=== PATIENT | female | born 1945 | race Native Hawaiian/Other Pacific Islander ===

== ENCOUNTER 2016-12-24 19:29 | Emergency (ER) | payer OTHER ==
[2016-12-24 19:30] VITALS: BMI 21.9
[2016-12-24] MEDS ORDERED: Albuterol-Ipratrop 3 mg / 0.5 (3 ml) UD IH STA (20:41)
[2016-12-24] MEDS ORDERED: Albuterol-Ipratrop 3 mg / 0.5 (3 ml) UD ONE (21:07)
[2016-12-24 21:22] LABS: BASO # 0.1 K/uL (0.0-0.2); BASO % 0.8 % (0.0-2.0); CHLORIDE 102 mmol/L (98-107); EOS # 0.2 K/uL (0.0-0.7); EOS % 3.3 % (0.0-4.0); HEMATOCRIT 39.4 % (34.0-47.0); LYMPH # 2.6 K/uL (1.0-4.3); LYMPH % 34.3 % (20.0-40.0); MEAN CORPUSCULAR HEMOGLOBIN 28.3 pg (27.0-31.0); MEAN CORPUSCULAR HGB CONC 33.6 g/dL (33.0-37.0); MEAN PLATELET VOLUME 8.8 fL (7.2-11.7); MONO # 0.7 K/uL (0.0-0.8); MONO % 9.3 % (0.0-10.0); NRBC % 0.1 % (0.0-2.0); POTASSIUM 4.4 mmol/L (3.6-5.2); RED CELL DISTRIBUTION WIDTH 13.5 % (11.5-14.5); SODIUM 138 mmol/L (132-148); WHITE BLOOD COUNT 7.5 K/uL (4.8-10.8)
[2016-12-24 21:24] LABS: ALB/GLOB RATIO 1.2 (1.0-2.1); ALKALINE PHOSPHATASE 62 U/L (38-126); AST/SGOT 35 U/L (14-36); BILIRUBIN,TOTAL 0.7 mg/dL (0.2-1.3); CARBON DIOXIDE 25 mmol/L (22-30); GFR AFRICAN-AMERICAN > 60; TOTAL PROTEIN 8.1 g/dL (6.3-8.3)
[2016-12-24 21:25] LABS: ALT/SGPT 33 U/L (9-52); BLOOD UREA NITROGEN 11 mg/dL (7-17); CALCIUM 8.9 mg/dl (8.6-10.4); GLUCOSE,RANDOM 102 mg/dL (65-105)
[2016-12-24 21:57] LABS: RBC URINE 1 /hpf (0-3); URINE BILIRUBIN NEGATIVE (NEGATIVE); URINE BLOOD NEGATIVE (NEGATIVE); URINE COLOR Yellow (YELLOW); URINE GLUCOSE (UA) NORMAL (Normal); URINE KETONE NEGATIVE (NEGATIVE); URINE LEUKOCYTE ESTERASE NEG Leu/uL (Negative); URINE PROTEIN NEGATIVE (NEGATIVE); URINE UROBILINOGEN NORMAL mg/dL (0.2-1.0); WBC URINE 1 /hpf (0-5)
--- NOTE | 2016-12-24 22:22 | C.PDOC ---
Time Seen by Provider: 12/24/16 20:12 Chief Complaint (Nursing): Cough, Cold, Congestion History Per: Patient Onset/Duration Of Symptoms: Days (5) Current Symptoms Are (Timing): Still Present Associated Symptoms: Fever (subjective), Cough, Sputum Severity: Moderate Recent travel outside of the [place]: No Additional History Per: Prior Records Past Medical History Reviewed: Historical Data, Nursing Documentation, Vital Signs Vital Signs: Last Vital Signs Temp 97.9 F 12/24/16 20:00 Pulse 96 H 12/24/16 20:00 Resp 22 12/24/16 20:00 BP 165/109 H 12/24/16 20:00 Pulse Ox 96 12/24/16 20:00 - Medical History PMH: Asthma, HTN, Hyperlipidemia Family History: States: Unknown Family Hx - Social History Hx Tobacco Use: No Hx Alcohol Use: No Hx Substance Use: No - Immunization History Hx Tetanus Toxoid Vaccination: No Hx Influenza Vaccination: No Hx Pneumococcal Vaccination: No Review Of Systems Except As Marked, All Systems Reviewed And Found Negative. Constitutional: Negative for: Weakness ENT: Negative for: Throat Pain Cardiovascular: Negative for: Chest Pain Respiratory: Positive for: Cough, Sputum. Negative for: Hemoptysis Gastrointestinal: Negative for: Vomiting, Abdominal Pain, Diarrhea Genitourinary: Positive for: Frequency Musculoskeletal: Negative for: Neck Pain, Back Pain Skin: Negative for: Rash Neurological: Negative for: Weakness, Numbness, Seizures, Altered Mental Status Physical Exam - Physical Exam Appears: Non-toxic, No Acute Distress Skin: Normal Color, Warm, Dry, No Rash Head: Atraumatic, Normacephalic Eye(s): bilateral: PERRL, EOMI Neck: Normal ROM, Supple Cardiovascular: Rhythm Regular Respiratory: No Accessory Muscle Use, Wheezing Gastrointestinal/Abdominal: Soft, No Tenderness Back: No CVA Tenderness Extremity: Normal ROM Neurological/Psych: Oriented x3, Normal Motor, Normal Sensation ED Course And Treatment - Laboratory Results Result Diagrams: 12/24/16 21:06 12/24/16 21:06 Lab Interpretation: No Acute Changes O2 Sat by Pulse Oximetry: 96 Pulse Ox Interpretation: Normal - Radiology CXR: Interpreted by Me, Viewed By Me CXR Interpretation: Yes: No Acute Disease Progress Note: Lungs are clear after only one Duoneb. Reassessment Condition: Improved Progress - Interventions Interventions:: Observation - Medications Administered Inhaled nebulized: Anticholinergic, Beta-2 agonist - Data Reviewed Data Reviewed: Lab, Diagnostic imaging, Old records - Patient Status Patient status: Mostly improved - Continuity of Care Discussed patient case with:: Patient, ED Nurse - Patient Plan Patient Plan: Discharge, F/U with PCP, Continue present meds Disposition Counseled Patient/Family Regarding: Studies Performed, Diagnosis, Need For Followup, Rx Given - Disposition Referrals: Yajaira Bergeron MD [Staff Provider] - Disposition: HOME/ ROUTINE Disposition Time: 22:22 Condition: IMPROVED Additional Instructions: Follow up with your doctor. Return to the ER if you develop high fever, shortness of breath, chest pain, lethargy, worsening of symptoms or if you have any other concerns. Prescriptions: Albuterol HFA [Ventolin HFA 90 mcg/actuation (8 g)] 2 puff IH Q4 PRN #1 unit PRN Reason: Wheezing Azithromycin [Zithromax] 1 dose PO DAILY #1 pkt Instructions: Acute Bronchitis (ED) - Clinical Impression Clinical Impression: Acute bronchitis
[2016-12-24 22:34] VITALS: BP 156/85; PULSE 86; RESP 18; TEMP 98.5; O2SAT 98
--- NOTE | 2016-12-25 09:59 | RAD ---
HISTORY: Cough COMPARISON: 10/21/2016 TECHNIQUE: Chest PA and lateral FINDINGS: LUNGS: Diffuse increased interstitial lung markings. Small nodule/nodular density at the medial right lower lung zone. Additional small nodular density at the left lung base. Bibasilar breast and nipple shadows. Upper lobe granulomatous changes. . PLEURA: No significant pleural effusion identified. No pneumothorax apparent. CARDIOVASCULAR: Calcification at the aortic knob. OSSEOUS STRUCTURES: Calcific tendinopathy and or loose osteochondral body at the left shoulder joint. VISUALIZED UPPER ABDOMEN: Normal. OTHER FINDINGS: None. IMPRESSION: Diffuse increased interstitial lung markings. Small nodule/nodular density at the medial right lower lung zone. Additional small nodular density at the left lung base. Bibasilar breast and nipple shadows. Upper lobe granulomatous changes. .
== END 2016-12-24 22:30 | disposition home or self-care (01) ==
LOC: C.ER 19:29
DX: J20.9 Acute bronchitis, unspecified (principal)

== ENCOUNTER 2017-01-15 17:04 | Emergency (ER) | payer OTHER ==
[2017-01-15 17:05] VITALS: BMI 21.9
--- NOTE | 2017-01-15 17:57 | C.PDOC ---
History Of Present Illness 71 yr old female presents to the ER with complaints of fever at night time and states sometimes she feels like her hands are itchy. Patient states she is homeless and stays with "family friends". Patient also reports of urinary frequency and states when she is hungry she feels dizzy. Patient denies chest pain, SOB, nausea, vomiting, diarrhea, constipation, dysuria, hematuria, weakness or numbness. Time Seen by Provider: 01/15/17 17:22 Chief Complaint (Nursing): Fever History Per: Patient History/Exam Limitations: no limitations Onset/Duration Of Symptoms: Days Sick Contacts (Context): None Past Medical History Reviewed: Historical Data, Nursing Documentation, Vital Signs Vital Signs: Last Vital Signs Temp 98.5 F 01/15/17 17:17 Pulse 62 01/15/17 17:17 Resp 20 01/15/17 17:17 BP 112/76 01/15/17 17:18 Pulse Ox 99 01/15/17 19:53 - Medical History PMH: Asthma, HTN, Hyperlipidemia Family History: States: No Known Family Hx - Social History Hx Tobacco Use: No Hx Alcohol Use: No Hx Substance Use: No - Immunization History Hx Tetanus Toxoid Vaccination: No Hx Influenza Vaccination: No Hx Pneumococcal Vaccination: No Review Of Systems Except As Marked, All Systems Reviewed And Found Negative. Constitutional: Positive for: Fever (Subjective) Cardiovascular: Negative for: Chest Pain Respiratory: Negative for: Shortness of Breath Gastrointestinal: Negative for: Nausea, Vomiting, Diarrhea, Constipation Genitourinary: Positive for: Frequency (Urinary ). Negative for: Dysuria, Hematuria Neurological: Negative for: Weakness, Numbness Physical Exam - Physical Exam Appears: Well, Non-toxic, No Acute Distress, Other (Eating chips in ED. ) Skin: Warm, Dry, No Rash Head: Atraumatic, Normacephalic Oral Mucosa: Moist Neck: Normal, Normal ROM, Supple Chest: Symmetrical, No Tenderness Cardiovascular: Rhythm Regular, No Murmur Respiratory: Normal Breath Sounds, No Rales, No Rhonchi, No Stridor, No Wheezing Gastrointestinal/Abdominal: Normal Exam, Soft, No Tenderness, No Guarding, No Rebound Extremity: Normal ROM, No Swelling Neurological/Psych: Oriented x3, Normal Speech, Normal Motor ED Course And Treatment O2 Sat by Pulse Oximetry: 99 - Other Rad CXR X-Ray: Viewed By Me, Read By Radiologist Interpretation: HISTORY: subjective fever. COMPARISON: Chest x-ray performed 12/24/16. TECHNIQUE: Chest PA and lateral. FINDINGS: LUNGS: Chronic appearing interstitial markings. No focal consolidation. Please note that chest x-ray has limited sensitivity for the detection of pulmonary masses. PLEURA: No significant pleural effusion identified. No definite pneumothorax . CARDIOVASCULAR: Heart size appears within normal limits. Atherosclerotic calcifications of the aorta. OSSEOUS STRUCTURES: Osseous demineralization. Degenerative changes. Scoliosis. VISUALIZED UPPER ABDOMEN: Unremarkable. OTHER FINDINGS: None. IMPRESSION: Chronic appearing interstitial markings. Progress Note: Fingerstick is 183. Urinalsyis is negative. Medical Decision Making Medical Decision Making: PLAN: * CXR * Urinalysis Disposition - Disposition Referrals: [facility] [Outside] Disposition: HOME/ ROUTINE Disposition Time: 19:58 Condition: STABLE Additional Instructions: ow up with PMD/Clinic within 1-2 days. Return to Ed if feel worse. Instructions: Dysuria (ED) - Clinical Impression Clinical Impression: Frequent urination - PA / SENIOR PROGRAMMER / Resident Statement MD/DO has reviewed & agrees with the documentation as recorded. - Scribe Statement The provider has reviewed the documentation as recorded by the Scribe Amrita Kessler All medical record entries made by the Scribe were at my direction and personally dictated by me. I have reviewed the chart and agree that the record accurately reflects my personal performance of the history, physical exam, medical decision making, and the department course for this patient. I have also personally directed, reviewed, and agree with the discharge instructions and disposition.
[2017-01-15 18:49] LABS: URINE BILIRUBIN NEGATIVE (NEGATIVE); URINE BLOOD NEGATIVE (NEGATIVE); URINE COLOR Straw (YELLOW); URINE GLUCOSE (UA) NORMAL (Normal); URINE KETONE NEGATIVE (NEGATIVE); URINE LEUKOCYTE ESTERASE TRACE Leu/uL (Negative); URINE PROTEIN NEGATIVE (NEGATIVE); URINE UROBILINOGEN NORMAL mg/dL (0.2-1.0); WBC URINE 2 /hpf (0-5)
[2017-01-15 20:14] VITALS: BP 155/84; PULSE 79; RESP 18; TEMP 97.5
[2017-01-18 13:41] VITALS: O2SAT 99
== END 2017-01-15 20:16 | disposition home or self-care (01) ==
LOC: C.ER 17:04
DX: R35.0 Frequency of micturition (principal); Z59.0 Homelessness

== ENCOUNTER 2017-04-09 13:44 | Emergency (ER) | payer OTHER ==
[2017-04-09 13:44] VITALS: BMI 21.9
--- NOTE | 2017-04-09 15:06 | C.PDOC ---
History Of Present Illness 71 year old female presents to the emergency department with complaints of fever since wednesday night and is "at times constipated." Patient has a history of HTN and homelessness. Patient has presented to the emergency department for similar complaints before and denies any chills, nausea, vomiting, or other complaints at this time. Time Seen by Provider: 04/09/17 14:37 Chief Complaint (Nursing): Fever History Per: Patient History/Exam Limitations: no limitations Onset/Duration Of Symptoms: Days (6 days ) Current Symptoms Are (Timing): Still Present Sick Contacts (Context): None Associated Symptoms: Fever, Other ("at times constipated" ). denies: Chills, Vomiting, Diarrhea Recent travel outside of the [place]: No Additional History Per: Prior Records Past Medical History Reviewed: Historical Data, Nursing Documentation, Vital Signs Vital Signs: Last Vital Signs Temp 98.4 F 04/09/17 15:56 Pulse 74 04/09/17 15:56 Resp 16 04/09/17 15:56 BP 169/77 H 04/09/17 15:56 Pulse Ox 99 04/09/17 15:56 - Medical History PMH: Asthma, HTN, Hyperlipidemia Family History: States: Unknown Family Hx - Social History Hx Tobacco Use: No Hx Alcohol Use: No Hx Substance Use: No - Immunization History Hx Tetanus Toxoid Vaccination: No Hx Influenza Vaccination: No Hx Pneumococcal Vaccination: No Review Of Systems Constitutional: Positive for: Fever. Negative for: Chills Cardiovascular: Negative for: Chest Pain Respiratory: Negative for: Shortness of Breath Gastrointestinal: Positive for: Constipation. Negative for: Nausea, Vomiting, Abdominal Pain, Diarrhea Physical Exam - Physical Exam Appears: Non-toxic, No Acute Distress, Other (patient is sleeping comfortably ) Skin: Warm, Dry Head: Atraumatic Eye(s): bilateral: Normal Inspection, PERRL, EOMI Oral Mucosa: Moist Neck: Supple Chest: Symmetrical, No Deformity Cardiovascular: Rhythm Regular Respiratory: Normal Breath Sounds, No Rhonchi, No Wheezing Gastrointestinal/Abdominal: Soft, No Tenderness, No Distention, No Guarding, No Rebound Neurological/Psych: Oriented x3 ED Course And Treatment O2 Sat by Pulse Oximetry: 98 (room air ) Medical Decision Making Medical Decision Making: pt sleeping in ed in nad. cxr urine neg. afebrile in er. multiple visits for similar. advise clinic f/u Disposition - Disposition Referrals: [facility] [Outside] [facility] [Outside] Disposition: HOME/ ROUTINE Disposition Time: 04:00 Condition: STABLE Additional Instructions: please follow up in clinic. return to er with worsening symptoms or concerns. Instructions: Fever in Adults (ED) Forms: [employer] (Senegalese) - Clinical Impression Clinical Impression: Fever, Homeless - Scribe Statement The provider has reviewed the documentation as recorded by the Scribmai Russell All medical record entries made by the Quynhibmai were at my direction and personally dictated by me. I have reviewed the chart and agree that the record accurately reflects my personal performance of the history, physical exam, medical decision making, and the department course for this patient. I have also personally directed, reviewed, and agree with the discharge instructions and disposition.
[2017-04-09 15:38] LABS: RBC URINE < 1 /hpf (0-3); URINE BILIRUBIN NEGATIVE (NEGATIVE); URINE BLOOD NEGATIVE (NEGATIVE); URINE COLOR Yellow (YELLOW); URINE GLUCOSE (UA) NORMAL (Normal); URINE KETONE NEGATIVE (NEGATIVE); URINE LEUKOCYTE ESTERASE 1+ Leu/uL (Negative); URINE PROTEIN NEGATIVE (NEGATIVE); URINE UROBILINOGEN NORMAL mg/dL (0.2-1.0); WBC URINE 4 /hpf (0-5)
[2017-04-09 15:57] VITALS: BP 169/77; PULSE 74; RESP 16; TEMP 98.4
--- NOTE | 2017-04-09 16:36 | RAD ---
HISTORY: fever COMPARISON: 01/15/2017 TECHNIQUE: Chest PA and lateral FINDINGS: LUNGS: No active pulmonary disease. PLEURA: No significant pleural effusion identified. No pneumothorax apparent. CARDIOVASCULAR: Normal. OSSEOUS STRUCTURES: Scoliosis, pectus deformity. VISUALIZED UPPER ABDOMEN: Unremarkable OTHER FINDINGS: None. IMPRESSION: No active disease. No significant interval change compared to the prior examination(s). Concordant results with the preliminary interpretation rendered by the emergency department physician procedure.
[2017-04-09 18:18] VITALS: O2SAT 98
== END 2017-04-09 16:14 | disposition home or self-care (01) ==
LOC: C.ER 13:44
DX: Z59.0 Homelessness (principal); R50.9 Fever, unspecified

== ENCOUNTER 2017-06-02 15:59 | Emergency (ER) | payer SELFPAY ==
[2017-06-02 16:00] VITALS: BMI 21.9
[2017-06-02 16:09] VITALS: TEMP 97.5
[2017-06-02 17:12] LABS: RBC URINE < 1 /hpf (0-3); URINE BILIRUBIN NEGATIVE (NEGATIVE); URINE BLOOD NEGATIVE (NEGATIVE); URINE COLOR Yellow (YELLOW); URINE GLUCOSE (UA) NORMAL (Normal); URINE KETONE NEGATIVE (NEGATIVE); URINE LEUKOCYTE ESTERASE NEG Leu/uL (Negative); URINE PROTEIN NEGATIVE (NEGATIVE); URINE UROBILINOGEN NORMAL mg/dL (0.2-1.0); WBC URINE 1 /hpf (0-5)
--- NOTE | 2017-06-02 17:28 | C.PDOC ---
History Of Present Illness 72 year old female with a history of HTN presents to the ED with complaints of intermittent bilateral hip pain for several months that worsens with ambulation , She notes she is compliant with her HCTZ. Patient also c/o increased urination recently. She denies dysuria, incontinence, fever, back pain, abdominal pain, sensory changes, urinary retention, falls/injuries. Time Seen by Provider: 06/02/17 16:25 Chief Complaint (Nursing): Hip Pain History Per: Patient History/Exam Limitations: no limitations Onset/Duration Of Symptoms: Intermittent Episodes (for "several months" ) Current Symptoms Are (Timing): Still Present Severity: Mild Past Medical History Reviewed: Historical Data, Nursing Documentation, Vital Signs Vital Signs: Last Vital Signs Temp 97.5 F L 06/02/17 16:06 Pulse 70 06/02/17 17:55 Resp 16 06/02/17 17:55 BP 155/88 H 06/02/17 17:55 Pulse Ox 97 06/03/17 17:10 - Medical History PMH: Asthma, HTN, Hyperlipidemia Family History: States: No Known Family Hx - Social History Hx Tobacco Use: No Hx Alcohol Use: No Hx Substance Use: No - Immunization History Hx Tetanus Toxoid Vaccination: No Hx Influenza Vaccination: No Hx Pneumococcal Vaccination: No Review Of Systems Except As Marked, All Systems Reviewed And Found Negative. Constitutional: Negative for: Fever, Chills Gastrointestinal: Negative for: Nausea, Vomiting, Abdominal Pain, Diarrhea Genitourinary: Positive for: Frequency (increase urination ). Negative for: Dysuria, Incontinence, Hematuria Musculoskeletal: Positive for: Other (bilateral hip pain ) Neurological: Negative for: Weakness, Numbness, Incoordination Physical Exam - Physical Exam Appears: Well, Non-toxic, No Acute Distress Skin: Warm, Dry, No Rash Head: Atraumatic, Normacephalic Eye(s): bilateral: Normal Inspection Oral Mucosa: Moist Neck: Normal, Normal ROM, Supple, Other (no thyromegaly/masses) Chest: Symmetrical, No Deformity Cardiovascular: Rhythm Regular Respiratory: Normal Breath Sounds, No Rales, No Rhonchi, No Wheezing Gastrointestinal/Abdominal: Normal Exam, Bowel Sounds, Soft, No Tenderness Back: Normal Inspection, No CVA Tenderness, No Vertebral Tenderness, No Paraspinal Tenderness Extremity: Normal ROM, Tenderness (mild bilateral hip tenderness to palpation), No Pedal Edema, No Calf Tenderness, Capillary Refill (< 2 sec all digits ), No Deformity (no deformity of the hips ), No Swelling, Other (No pain with pelvic rocking ) Extremity: Bilateral: Atraumatic, Normal Color And Temperature, Normal ROM Pulses: Left Dorsalis Pedis: Normal, Right Dorsalis Pedis: Normal Neurological/Psych: Oriented x3, Normal Motor, Normal Sensation Gait: Steady ED Course And Treatment O2 Sat by Pulse Oximetry: 97 (room air ) Pulse Ox Interpretation: Normal - Other Rad Bilateral Hip X-ray X-Ray: Interpreted by Me, Viewed By Me Interpretation: Mild arthritic changes, osteopenia. No fractures/dislocations. Progress Note: UA, accucheck and Xrays of hips/pelvis ordered and reviewed. Patient did not want pain medication in ED. Reevaluation Time: 17:40 Reassessment Condition: Improved (On reassessment, patient is resting comfortably and states she feels well. She is ambulating normally in ED, and Xrays (-) for fracture/dislocation. UA (-) for UTI and accucheck also WNL. Patient given rx for Naprosyn, and was instructed to follow up with medial clinic in 1-2 days. She understands she should return to ED if symptoms worsen. ) Disposition Counseled Patient/Family Regarding: Studies Performed, Diagnosis, Need For Followup, Rx Given - Disposition Referrals: [facility] [Outside] Disposition: HOME/ ROUTINE Disposition Time: 17:40 Condition: STABLE Additional Instructions: FOLLOW UP WITH YOUR DOCTOR/CLINIC IN 1-2 DAYS USE MEDICATION FOR PAIN NEEDED RETURN TO ER IF SYMPTOMS WORSEN Prescriptions: Naproxen [Naprosyn Tab] 375 mg PO BID PRN #25 tab PRN Reason: pain Instructions: Hip Pain (ED) Forms: [employer] (Yemeni) Print Language: ARMENIAN - POA Present On Arrival: None - Clinical Impression Clinical Impression: Hip pain, Osteoarthritis - Scribe Statement The provider has reviewed the documentation as recorded by the Quynhibmai Russell All medical record entries made by the Quynhibmai were at my direction and personally dictated by me. I have reviewed the chart and agree that the record accurately reflects my personal performance of the history, physical exam, medical decision making, and the department course for this patient. I have also personally directed, reviewed, and agree with the discharge instructions and disposition.
[2017-06-02 17:56] VITALS: BP 155/88; PULSE 70; RESP 16
[2017-06-02 18:41] VITALS: O2SAT 97
--- NOTE | 2017-06-03 09:21 | RAD ---
PROCEDURE: HISTORY: B/L HIP PAIN COMPARISON: None TECHNIQUE: Frontal and frog-leg views FINDINGS: Bilateral mainly axial the superolateral joint space narrowing with mild superolateral acetabular osseous hypertrophy -symmetrical appearing. No fracture dislocation. Minimal inferior L5-S1 facet hypertrophic arthrosis. Minimal sclerotic bilateral SI joint arthrosis. Trace sclerotic subchondral symphysis pubis changes 7-8 mm bone island mid to inferior central sacrum -benign appearing IMPRESSION: No fracture or dislocation. Minimal degenerative changes and minimal arthrosis. Incidental benign-appearing mid sacral bone island suggested
== END 2017-06-02 17:55 | disposition home or self-care (01) ==
LOC: C.ER 15:59
DX: M16.0 Bilateral primary osteoarthritis of hip (principal); M25.552 Pain in left hip; M25.551 Pain in right hip

== ENCOUNTER 2017-06-23 17:31 | Emergency (ER) | payer OTHER, SELFPAY ==
[2017-06-23 17:31] VITALS: BMI 21.9
[2017-06-23] MEDS ORDERED: Iohexol 240 (50 ml) PO STA (18:12)
--- NOTE | 2017-06-23 18:31 | C.PDOC ---
History Of Present Illness 72 y/o female with PMHx HTN and Angina presents to ED with complaint of abdominal pain for 6 months. Patient reports she had blood in stool and was admitted to the ED in [place]. Patient reports she has occasional blood in stool and periumbilical abdominal discomfort 2/10 does not let her sleep at night. Patient states she drinks hot water and hot milk which resolves symptoms but came for further evaluation. Patient denies fever, chills, nausea, vomiting , diarrhea or any other complaints at this time. Time Seen by Provider: 06/23/17 17:40 Chief Complaint (Nursing): Abdominal Pain History Per: Patient History/Exam Limitations: no limitations Onset/Duration Of Symptoms: Days Location Of Pain/Discomfort: Periumbilical Quality Of Discomfort: "Pain" Associated Symptoms: denies: Fever, Chills Past Medical History Reviewed: Historical Data, Nursing Documentation, Vital Signs Vital Signs: Last Vital Signs Temp 97.6 F 06/23/17 20:13 Pulse 82 06/23/17 20:13 Resp 18 06/23/17 20:13 BP 159/86 H 06/23/17 20:13 Pulse Ox 96 06/23/17 21:07 - Medical History PMH: Asthma, HTN, Hyperlipidemia Surgical History: No Surg Hx Family History: States: No Known Family Hx - Social History Hx Tobacco Use: No Hx Alcohol Use: No Hx Substance Use: No - Immunization History Hx Tetanus Toxoid Vaccination: No Hx Influenza Vaccination: No Hx Pneumococcal Vaccination: No Review Of Systems Constitutional: Negative for: Fever, Chills Gastrointestinal: Positive for: Abdominal Pain, Hematochezia. Negative for: Nausea, Vomiting, Diarrhea Genitourinary: Negative for: Dysuria, Hematuria Musculoskeletal: Negative for: Back Pain Skin: Negative for: Rash Neurological: Negative for: Weakness, Numbness Physical Exam - Physical Exam Appears: Non-toxic, No Acute Distress Skin: Normal Color, Warm, Dry, No Rash Head: Atraumatic, Normacephalic Oral Mucosa: Moist Neck: Normal ROM, Supple Chest: Symmetrical Cardiovascular: Rhythm Regular Respiratory: Normal Breath Sounds, No Rales, No Rhonchi, No Wheezing Gastrointestinal/Abdominal: Soft, No Tenderness, No Guarding, No Rebound Back: No CVA Tenderness Neurological/Psych: Oriented x3 ED Course And Treatment - Laboratory Results Result Diagrams: 06/23/17 18:34 06/23/17 18:34 Lab Interpretation: No Acute Changes O2 Sat by Pulse Oximetry: 96 (RA) Pulse Ox Interpretation: Normal - CT Scan/US CT Abd/Pel w/o contrast IV Other Rad Studies (CT/US): Interpreted By Me, Read By Radiologist CT/US Interpretation: EXAM: CT Abdomen and Pelvis With Intravenous Contrast. EXAM DATE/TIME: Exam ordered 06/23/2017 6:13 PM. CLINICAL HISTORY: 72 years old, female; Pain; Abdominal pain; Periumbilical; Additional info: Abd pain. TECHNIQUE: Axial computed tomography images of the abdomen and pelvis with intravenous contrast. All CT. scans at this facility use one or more dose reduction techniques, viz.: automated exposure control;. ma/kV adjustment per patient size (including targeted exams where dose is matched to indication; i.e. head); or iterative reconstruction technique. Coronal and sagittal reformatted images were created and reviewed. CONTRAST: 100 mL of OMNIPAQUE 300 administered intravenously. COMPARISON: No relevant prior studies available. FINDINGS: Lower thorax: A coarse linear density is noted within the lingula. A coarse linear density is noted in. the right middle lobe. A granuloma is noted at the right lung base posteriorly There is a small sliding. hiatal hernia. ABDOMEN: Liver: Unremarkable. No mass. Gallbladder and bile ducts: Unremarkable. No calcified stones. No ductal dilation. Pancreas: Unremarkable. No mass. No ductal dilation. Spleen: Unremarkable. No splenomegaly. Adrenals: Unremarkable. No mass. Kidneys and ureters: Unremarkable. No solid mass. No hydronephrosis. Stomach and bowel: A large amount of stool is seen throughout the colon. No mucosal thickening. Appendix: No findings to suggest acute appendicitis. PELVIS: Bladder: Unremarkable. No mass. Reproductive: Calcifications are noted in the uterus that suggests calcified fibroids. ABDOMEN and PELVIS: Intraperitoneal space: Unremarkable. No free air. No significant fluid collection. Bones/joints: There is a rotatory levoscoliosis of the thoracic spine. Mild degenerative changes are. noted of the lumbosacral junction. No acute fracture. No dislocation. Soft tissues: Unremarkable. Vasculature: Unremarkable. No abdominal aortic aneurysm. Lymph nodes: Unremarkable. No enlarged lymph nodes. IMPRESSION: 1. Large amount of stool is seen throughout the colon. The appendix appears normal. 2. Scarring at the lung bases. Calcified granuloma at the right base indicates previous granulomatous. infection. 3. Small sliding hiatal hernia Reevaluation Time: 21:09 Reassessment Condition: Improved (Patient in no distress.) Disposition Counseled Patient/Family Regarding: Studies Performed, Diagnosis, Need For Followup - Disposition Referrals: Shashi German APN-C [Advanced Practice Nurse] - Disposition: HOME/ ROUTINE Disposition Time: 21:10 Condition: STABLE Instructions: Constipation (ED) Forms: [employer] (Zambian) - Clinical Impression Clinical Impression: Constipation, Abdominal pain - Scribe Statement The provider has reviewed the documentation as recorded by the Scribmai Randle All medical record entries made by the Quynhibmai were at my direction and personally dictated by me. I have reviewed the chart and agree that the record accurately reflects my personal performance of the history, physical exam, medical decision making, and the department course for this patient. I have also personally directed, reviewed, and agree with the discharge instructions and disposition.
[2017-06-23] MEDS ORDERED: Iohexol 240 (50 ml) ONE (18:37)
[2017-06-23 18:39] LABS: BASO % 0.6 % (0.0-2.0); EOS # 0.2 K/uL (0.0-0.7); EOS % 2.9 % (0.0-4.0); HEMATOCRIT 42.5 % (34.0-47.0); LYMPH # 3.2 K/uL (1.0-4.3); LYMPH % 41.6 % (20.0-40.0); MEAN CELL VOLUME 82.4 fL (81.0-99.0); MEAN CORPUSCULAR HEMOGLOBIN 27.6 pg (27.0-31.0); MEAN CORPUSCULAR HGB CONC 33.5 g/dL (33.0-37.0); MEAN PLATELET VOLUME 8.4 fL (7.2-11.7); MONO # 0.7 K/uL (0.0-0.8); MONO % 9.6 % (0.0-10.0); NRBC % 0.1 % (0.0-2.0); RED CELL DISTRIBUTION WIDTH 13.3 % (11.5-14.5); WHITE BLOOD COUNT 7.8 K/uL (4.8-10.8)
[2017-06-23 18:41] LABS: RBC URINE < 1 /hpf (0-3); URINE BILIRUBIN NEGATIVE (NEGATIVE); URINE BLOOD NEGATIVE (NEGATIVE); URINE COLOR Yellow (YELLOW); URINE GLUCOSE (UA) NORMAL (Normal); URINE KETONE NEGATIVE (NEGATIVE); URINE LEUKOCYTE ESTERASE TRACE Leu/uL (Negative); URINE PROTEIN NEGATIVE (NEGATIVE); URINE UROBILINOGEN NORMAL mg/dL (0.2-1.0); WBC URINE < 1 /hpf (0-5)
[2017-06-23 18:51] LABS: CHLORIDE 97 mmol/L (98-107)
[2017-06-23 18:52] LABS: POTASSIUM 3.7 mmol/L (3.6-5.2); SODIUM 135 mmol/L (132-148)
[2017-06-23 18:54] LABS: GFR AFRICAN-AMERICAN > 60
[2017-06-23 18:55] LABS: ALKALINE PHOSPHATASE 76 U/L (38-126); ALT/SGPT 45 U/L (9-52); AST/SGOT 30 U/L (14-36); BLOOD UREA NITROGEN 10 mg/dL (7-17); CALCIUM 9.4 mg/dl (8.6-10.4); CARBON DIOXIDE 26 mmol/L (22-30); GLUCOSE,RANDOM 89 mg/dL (65-105)
[2017-06-23] MEDS ORDERED: Iohexol 300 100 ML IJ ONE (19:46)
[2017-06-23 20:14] VITALS: RESP 18; TEMP 97.6
--- NOTE | 2017-06-23 20:48 | CT ---
EXAM: CT Abdomen and Pelvis With Intravenous Contrast EXAM DATE/TIME: Exam ordered 06/23/2017 6:13 PM CLINICAL HISTORY: 72 years old, female; Pain; Abdominal pain; Periumbilical; Additional info: Abd pain TECHNIQUE: Axial computed tomography images of the abdomen and pelvis with intravenous contrast. All CT scans at this facility use one or more dose reduction techniques, viz.: automated exposure control; ma/kV adjustment per patient size (including targeted exams where dose is matched to indication; i.e. head); or iterative reconstruction technique. Coronal and sagittal reformatted images were created and reviewed. CONTRAST: 100 mL of OMNIPAQUE 300 administered intravenously. COMPARISON: No relevant prior studies available. FINDINGS: Lower thorax: A coarse linear density is noted within the lingula. A coarse linear density is noted in the right middle lobe. A granuloma is noted at the right lung base posteriorly There is a small sliding hiatal hernia. ABDOMEN: Liver: Unremarkable. No mass. Gallbladder and bile ducts: Unremarkable. No calcified stones. No ductal dilation. Pancreas: Unremarkable. No mass. No ductal dilation. Spleen: Unremarkable. No splenomegaly. Adrenals: Unremarkable. No mass. Kidneys and ureters: Unremarkable. No solid mass. No hydronephrosis. Stomach and bowel: A large amount of stool is seen throughout the colon. No mucosal thickening. Appendix: No findings to suggest acute appendicitis. PELVIS: Bladder: Unremarkable. No mass. Reproductive: Calcifications are noted in the uterus that suggests calcified fibroids ABDOMEN and PELVIS: Intraperitoneal space: Unremarkable. No free air. No significant fluid collection. Bones/joints: There is a rotatory levoscoliosis of the thoracic spine. Mild degenerative changes are noted of the lumbosacral junction. No acute fracture. No dislocation. Soft tissues: Unremarkable. Vasculature: Unremarkable. No abdominal aortic aneurysm. Lymph nodes: Unremarkable. No enlarged lymph nodes. IMPRESSION: 1. Large amount of stool is seen throughout the colon. The appendix appears normal 2. Scarring at the lung bases. Calcified granuloma at the right base indicates previous granulomatous infection. 3. Small sliding hiatal hernia
[2017-06-23 21:24] VITALS: BP 144/87; PULSE 74; O2SAT 98
== END 2017-06-23 21:25 | disposition home or self-care (01) ==
LOC: C.ER 17:31
DX: K59.00 Constipation, unspecified (principal); R10.33 Periumbilical pain
CPT/HCPCS: 74177; 80053; 81001; 83690; 85025; 99285; Q9966; Q9967

== ENCOUNTER 2017-07-09 16:48 | Emergency (ER) | payer OTHER ==
[2017-07-09 16:49] VITALS: BMI 21.9
--- NOTE | 2017-07-09 17:30 | C.PDOC ---
History Of Present Illness 72 y/o F c history of constipation multiple times p/w constipation x 3 days. Reports intermittent abdominal cramping. Attempted milk of magnesia at home without success. Is requesting an enema. Denies fever, chills, vomiting, nausea , history of abdominal surgery or history of abdominal cancer. Time Seen by Provider: 07/09/17 17:18 Chief Complaint (Nursing): GI Problem Past Medical History Vital Signs: Last Vital Signs Temp 98 F 07/09/17 16:54 Pulse 89 07/09/17 16:54 Resp 16 07/09/17 16:54 BP 120/88 07/09/17 16:54 Pulse Ox 98 07/09/17 18:41 - Medical History PMH: Asthma, HTN, Hyperlipidemia Family History: States: Unknown Family Hx - Social History Hx Tobacco Use: No Hx Alcohol Use: No Hx Substance Use: No - Immunization History Hx Tetanus Toxoid Vaccination: No Hx Influenza Vaccination: No Hx Pneumococcal Vaccination: No Review Of Systems Except As Marked, All Systems Reviewed And Found Negative. Constitutional: Negative for: Fever Cardiovascular: Negative for: Chest Pain Physical Exam - Physical Exam Additional Physical Exam Comments: Constitutional: No acute distress. Head: Normocephalic. Atraumatic. Eyes: PERRL. ENT: Moist mucous membranes. Neck: Supple. Cardiovascular: Regular rate. Radial pulse 2+ bilaterally. Chest: No tenderness. Respiratory: Clear to auscultation bilaterally. GI: Soft. Nontender. Nondistended. Back: No CVA tenderness. Musculoskeletal: No tenderness or swelling of extremities. Skin: No rash. Neurologic: Alert, no focal deficit. ED Course And Treatment O2 Sat by Pulse Oximetry: 98 Medical Decision Making Medical Decision Making: Patient administered soap suds enema with good bowel movement. Patient requests prescription for fleet enema. Instructed patient to return to ED immediately for vomiting, fever, abdominal pain. Disposition - Disposition Disposition: HOME/ ROUTINE Disposition Time: 18:31 Condition: STABLE Prescriptions: Magnesium Citrate [Citrate of Mag] 300 ml PO ONCE #1 bottle Sod Phos,M-B/Na Phos,Di-Ba [Fleet Enema] 133 ml RC ONCE #2 enema Instructions: Constipation (ED) Forms: [employer] ([place]) - Clinical Impression Clinical Impression: Constipation - Scribe Statement The provider has reviewed the documentation as recorded by the Quynhibmai Bunn All medical record entries made by the Quynhibmai were at my direction and personally dictated by me. I have reviewed the chart and agree that the record accurately reflects my personal performance of the history, physical exam, medical decision making, and the department course for this patient. I have also personally directed, reviewed, and agree with the discharge instructions and disposition.
[2017-07-09 19:08] VITALS: BP 150/88; PULSE 72; RESP 18; TEMP 98.4; O2SAT 99
== END 2017-07-09 19:00 | disposition home or self-care (01) ==
LOC: C.ER 16:48
DX: K59.00 Constipation, unspecified (principal)